=== PATIENT | female | born 1980 | race Caucasian/White ===

== ENCOUNTER 2016-07-14 15:39 | Emergency (ER) | payer OTHER ==
--- NOTE | 2016-07-14 18:20 | UC ---
Throat Pain/Nasal Sorin HPI - HPI Summary HPI Summary: SORE THROAT FOR TWO DAYS, EAR ACHE. NO FEVER. TEN YEAR OLD CHILD HAS POSITIVE STREP DIAGNOSIS. - History of Current Complaint Chief Complaint: UCRespiratory Stated Complaint: SORE THROAT,EAR PAIN Time Seen by Provider: 07/14/16 17:27 Hx Obtained From: Patient, Family/Hearing Care Practitioner Hx Last Menstrual Period: n/a Onset/Duration: Gradual Onset, Lasting Days, Still Present Severity: Moderate Pain Intensity: 5 Pain Scale Used: 0-10 Numeric Cough: Nonproductive Associated Signs & Symptoms: Positive: Sinus Discomfort, Nasal Discharge. Negative: Fever - Allergies/Home Medications Allergies/Adverse Reactions: Allergies Allergy/AdvReac Type Severity Reaction Status Date / Time Amoxicillin Allergy Hives Verified 07/14/16 17:09 Cephalexin Allergy Hives Verified 07/14/16 17:09 Ciprofloxacin Allergy Hives Verified 07/14/16 17:09 Penicillins Allergy Difficulty Verified 07/14/16 17:09 Breathing Home Medications: Home Medications Levonorgestrel (IUD) (NF) [Mirena (NF)] 1 unit IU DAILY 07/14/16 [History Confirmed 07/14/16] Naproxen Sodium [Eql Naproxen Sodium] 500 mg PO ONCE PRN 07/14/16 [History Confirmed 07/14/16] PMH/Surg Hx/FS Hx/Imm Hx Previously Healthy: Yes - Surgical History Surgical History: None - Family History Known Family History: Positive: Respiratory Disease - TOBACCO ABUSE - Social History Occupation: Employed Full-time Alcohol Use: Occasionally Substance Use Type: Excessive Caffeine Smoking Status (MU): Heavy Every Day Tobacco Smoker Cessation Counseling: Counseled 3+Min - 10 Min Review of Systems Constitutional: Negative Skin: Negative Eyes: Negative ENT: Sore Throat, Ear Ache Respiratory: Negative Cardiovascular: Negative Gastrointestinal: Negative Genitourinary: Negative Motor: Negative Neurovascular: Negative Musculoskeletal: Negative Neurological: Negative Psychological: Negative All Other Systems Reviewed And Are Negative: Yes Physical Exam Triage Information Reviewed: Yes Appearance: Well-Appearing, No Pain Distress, Well-Nourished Vital Signs: Initial Vital Signs Temp 98.5 F 07/14/16 17:02 Pulse 76 07/14/16 17:02 Resp 20 07/14/16 17:02 BP 122/70 07/14/16 17:02 Pulse Ox 98 07/14/16 17:02 Vital Signs Reviewed: Yes Eye Exam: Normal ENT: Positive: Hearing grossly normal, Pharyngeal erythema, TMs normal Dental Exam: Normal Neck exam: Normal Neck: Positive: Supple, Nontender, No Lymphadenopathy Respiratory Exam: Normal Respiratory: Positive: Chest non-tender, Lungs clear, Normal breath sounds, No respiratory distress Cardiovascular Exam: Normal Cardiovascular: Positive: RRR, No Murmur, Pulses Normal, Brisk Capillary Refill Abdominal Exam: Normal Musculoskeletal Exam: Normal Neurological Exam: Normal Psychological Exam: Normal Skin Exam: Normal Throat Pain/Nasal Course/Dx - Differential Dx/Diagnosis Differential Diagnosis/HQI/PQRI: Sinusitis, URI Provider Diagnoses: PHARYNGITIS. TOBACCO ABUSE Discharge - Discharge Plan Condition: Stable Disposition: HOME Prescriptions: Azithromycin TAB* [Zithromax TAB (Z-JENNIFER) 250 mg #6 tabs] 250 mg PO DAILY #6 tab Patient Education Materials: Pharyngitis (ED) Forms: *Work Release Referrals: Greta Montano MD [Primary Care Provider] -
== END 2016-07-14 18:09 | disposition home or self-care (01) ==
LOC: UCCORT 15:39
DX: J02.9 Acute pharyngitis, unspecified (principal); F17.210 Nicotine dependence, cigarettes, uncomplicated; Z88.1 Allergy status to other antibiotic agents; Z88.0 Allergy status to penicillin
CPT/HCPCS: 99202; G0463

== ENCOUNTER 2017-08-30 16:54 | Emergency (ER) | payer OTHER ==
--- NOTE | 2017-08-30 17:20 | UC ---
UC General HPI - HPI Summary HPI Summary: pt thinks she may have the flu. she is c/o fever, chills and bodyaches with sudden onset yesterday. today, she has watery diarrhea several times as well. pt states she has been taking levaquin x 48 hours for a bad tooth and took a weeks worth of clindamycin before that for the same issue. she denies mucous and blood in the stool. she denies any abdominal pain. - History of Current Complaint Stated Complaint: FLU SYMPTOMS Time Seen by Provider: 08/30/17 17:10 Hx Obtained From: Patient Hx Last Menstrual Period: n/a Onset/Duration: Sudden Onset Timing: Constant Aggravating: nothing Alleviating: nothing Associated Signs & Symptoms: Positive: Diarrhea, Fever. Negative: Abdominal Pain, Cough, Dysuria, Nausea, SOB, Vomiting - Allergy/Home Medications Allergies/Adverse Reactions: Allergies Allergy/AdvReac Type Severity Reaction Status Date / Time amoxicillin Allergy Hives Verified 08/30/17 17:11 cephalexin Allergy Hives Verified 08/30/17 17:11 ciprofloxacin Allergy Hives Verified 08/30/17 17:11 Penicillins Allergy Difficulty Verified 08/30/17 17:11 Breathing Home Medications: Home Medications Ibuprofen TAB* [Motrin TAB* 800 MG] 800 mg PO TID 08/30/17 [History Confirmed ] PMH/Surg Hx/FS Hx/Imm Hx - Additional Past Medical History Additional PMH: L lower dental infection-dentist appt next week - Surgical History Surgical History: None - Family History Known Family History: Positive: Respiratory Disease - TOBACCO ABUSE - Social History Occupation: Employed Full-time Lives: With Family Alcohol Use: Occasionally Substance Use Type: Excessive Caffeine Smoking Status (MU): Heavy Every Day Tobacco Smoker - Immunization History Vaccination Up to Date: Yes Review of Systems Constitutional: Fever, Chills Gastrointestinal: Diarrhea Musculoskeletal: Myalgia Is Patient Immunocompromised?: No All Other Systems Reviewed And Are Negative: Yes Physical Exam Triage Information Reviewed: Yes Appearance: Well-Appearing Vital Signs Reviewed: Yes Eyes: Positive: Conjunctiva Clear ENT: Positive: Pharynx normal, TMs normal. Negative: Nasal congestion, Nasal drainage Dental: Positive: Other: - L lower cusp area red but not swollen of fluctuant. Neck: Positive: Supple, Nontender, No Lymphadenopathy Respiratory: Positive: Lungs clear, Normal breath sounds Cardiovascular: Positive: RRR, No Murmur, Pulses Normal Abdomen Description: Positive: Nontender, No Organomegaly, Soft. Negative: Distended, Guarding Bowel Sounds: Positive: Present Musculoskeletal: Positive: ROM Intact Neurological: Positive: Alert Psychological: Positive: Age Appropriate Behavior Skin Exam: Normal Diagnostics - Laboratory Diagnostic Studies Completed/Ordered: Rapid flu is negative. c-diff is pending Course/Dx - Course Course Of Treatment: non toxic. no acute abdomen. rapid flu neg. pt has had 9 days of antibiotics thus need to exclude c-diff colitis. will d/c the Levaquin and start flagyl which covers c-diff and oral infections. pt to keep her dental f/u as schedule and will f/u with her pcp this friday. - Differential Dx - Multi-Symptom Provider Diagnoses: Fever. diarrhea. rule out c-diff colitis Discharge - Discharge Plan Condition: Stable Disposition: HOME Prescriptions: metroNIDAZOLE [Flagyl 500 MG TAB] 500 mg PO TID 10 Days #30 tab Patient Education Materials: Fever in Adults (ED), Acute Diarrhea (ED), Clostridium Difficile Infection (ED) Forms: *Work Release Referrals: Greta Montano MD [Primary Care Provider] - 2 Days Additional Instructions: STOP THE LEVAQUIN. START A PROBIOTIC SUCH CULTURELLE. GO TO ER FOR ANY WORSENING
== END 2017-08-30 18:18 | disposition home or self-care (01) ==
LOC: UCCORT 16:54
DX: R50.9 Fever, unspecified (principal); R19.7 Diarrhea, unspecified; Z88.1 Allergy status to other antibiotic agents; Z88.0 Allergy status to penicillin; F17.200 Nicotine dependence, unspecified, uncomplicated
CPT/HCPCS: 87502; 99212; G0463